=== PATIENT | male | born 1980 | race Caucasian/White ===

== ENCOUNTER 2019-01-07 16:09 | Emergency (ER) | payer OTHER ==
[2019-01-07 16:19] VITALS: BP 128/77; PULSE 93; RESP 18; TEMP 99.3
[2019-01-07] MEDS ORDERED: KETOROLAC 30 MG/ML 1 ML VIAL IM STA (16:56)
[2019-01-07] MEDS ORDERED: SULFAMETHOX-TMP 800-160MG 1 EACH TAB PO STA (16:58)
--- NOTE | 2019-01-07 17:00 | ED ---
General Adult HPI - General Chief complaint: Skin/Abscess/Foreign Body Stated complaint: swelling on neck Time Seen by Provider: 01/07/19 16:26 Source: patient Mode of arrival: ambulatory Limitations: no limitations - History of Present Illness Initial comments: Patient is 38-year-old male presents to emergency room with a chief complaint of infection in the neck. Patient reports he was injecting Suboxone from the street approximately 2 weeks ago in his neck and a sense developed redness with mild edema near the base of the right clavicle. Patient reports tenderness with palpation. Patient denies limited range of motion of the neck. Patient denies nausea vomiting or diarrhea. Patient denies chest pain, chest and shortness of breath. Patient denies any headaches. Patient denies any fevers night sweats or chills. Patient denies taking medication to alleviate the symptoms. - Related Data Previous Rx's Medication Instructions Recorded Sulfamethox-Tmp 800-160Mg [Bactrim 1 each PO Q12HR #20 tab 01/07/19 Ds] Allergies Allergy/AdvReac Type Severity Reaction Status Date / Time No Known Allergies Allergy Verified 01/07/19 16:49 Review of Systems ROS Statement: Those systems with pertinent positive or pertinent negative responses have been documented in the HPI. ROS Other: All systems not noted in ROS Statement are negative. Past Medical History Past Medical History: No Reported History History of Any Multi-Drug Resistant Organisms: None Reported Past Surgical History: Appendectomy Past Psychological History: No Psychological Hx Reported Smoking Status: Current every day smoker Past Alcohol Use History: None Reported Past Drug Use History: IV Drug Use, Marijuana General Exam Limitations: no limitations General appearance: alert, in no apparent distress Head exam: Present: atraumatic, normocephalic, normal inspection Eye exam: Present: normal appearance, PERRL, EOMI Pupils: Present: normal accommodation ENT exam: Present: normal exam, normal oropharynx, mucous membranes moist, TM's normal bilaterally, normal external ear exam Neck exam: Present: normal inspection, tenderness (The right jugular and right clavicle.), full ROM, other (Erythema with mild edema near the right jugular and clavicle. 3 cm of induration with minimal fluctuance). Absent: lymphadenopathy Respiratory exam: Present: normal lung sounds bilaterally, respiratory distress Cardiovascular Exam: Present: regular rate, normal rhythm, normal heart sounds. Absent: systolic murmur Extremities exam: Present: normal inspection, full ROM Back exam: Present: normal inspection, full ROM Neurological exam: Present: alert, oriented X3 Psychiatric exam: Present: normal affect, normal mood Skin exam: Present: warm, intact, normal color Course Vital Signs 01/07/19 16:16 Temperature 99.3 F Pulse Rate 93 Respiratory 18 Rate Blood Pressure 128/77 O2 Sat by Pulse 99 Oximetry Procedures - Incision & Drainage Consent Obtained: verbal consent Indication: Infection, abscess Site: neck Size (cm): 3 I&D Cleaning Method: Alcohol Wipe Sterile Field Used?: No Needle Aspiration Performed?: Yes (White pus and blood removed) I&D Drainage Obtained: Pus, Blood Culture Obtained?: Yes Complications: pain Patient Tolerated Procedure: well Medical Decision Making - Medical Decision Making Patient is a 38-year-old male presenting to emergency Department with a chief complaint of infection in the neck. Bedside ultrasound was performed and a pus pocket was visualized on the right side of the neck near the clavicle. Ultrasound-guided needle aspiration was performed and pus was removed. Wound culture was sent. Patient appears to have an abscess. Patient was given Toradol for pain. Patient was also given a single dose of Bactrim and will be discharged on a course of Bactrim. Patient advised to return to emergency department if he develops fever or worsening of the infection. Strict return parameters were thoroughly discussed the patient denies having and agreeable. Case discussed physician. Disposition Clinical Impression: Abscess Disposition: HOME SELF-CARE Condition: Stable Instructions (If sedation given, give patient instructions): Abscess (ED) Additional Instructions: Please take prescribed medication as directed. Please return to emergency department symptoms worsen. Please avoid using illegal substances. Prescriptions: Sulfamethox-Tmp 800-160Mg [Bactrim Ds] 1 each PO Q12HR #20 tab Is patient prescribed a controlled substance at d/c from ED?: No Referrals: None,Stated [Primary Care Provider] - 1-2 days Time of Disposition: 17:12
== END 2019-01-07 17:10 | disposition home or self-care (01) ==
LOC: EC 16:09
DX: L02.11 Cutaneous abscess of neck (principal); F17.200 Nicotine dependence, unspecified, uncomplicated
CPT/HCPCS: 87070; 87205; 99283; 96372; 10160; J1885